=== PATIENT | female | born 1995 | race Two or more races ===

== ENCOUNTER 2017-12-02 23:45 | Emergency (ER) | payer SELFPAY ==
--- NOTE | 2017-12-03 00:35 | EDPHY ---
H & P Stated Complaint: left lower abd pain Time Seen by Provider: 12/03/17 00:23 HPI/ROS: Chief Complaint: Abdominal pain HPI: 22-year-old G0 woman presenting with left lower abdominal pelvic pain worsening for the last 3 days. Last menstrual period started 4 days ago. No nausea or vomiting. There are no aggravating or alleviating factors. She has not take any medicine for this. Pain is about a 4/10. Has had some urinary frequency. She has an implant non. No history of sexually transmitted infections in the past. No abnormal vaginal discharge. No fevers or chills. ROS: 10 systems were reviewed and were negative except those elements noted in the HPI. PMH: Denies Social History: No smoking, no alcohol, no recreational drug use Family History: non-contributory Physical Exam: Gen: Awake, Alert, No Distress HEENT: Nose: no rhinorrhea Eyes: PERRLA, EOMI Mouth: Moist mucosa Neck: Supple, no JVD Chest: nontender, lungs clear to auscultation Heart: S1, S2 normal, no murmur Abd: Soft, moderate left adnexal tenderness, no guarding Back: no CVA tenderness, no midline tenderness Ext: no edema, non-tender Skin: no rash Neuro: CN II-XII intact, Sensation grossly intact, Strength 5/5 in bilateral upper and lower extremities - Personal History LMP (Females 10-55): 1-7 Days Ago Current Tetanus Diphtheria and Acellular Pertussis (TDAP): Yes - Medical/Surgical History Hx Asthma: No Hx Chronic Respiratory Disease: No Hx Diabetes: No Hx Cardiac Disease: No Hx Renal Disease: No Hx Cirrhosis: No Hx Alcoholism: No Hx HIV/AIDS: No Hx Splenectomy or Spleen Trauma: No - Social History Smoking Status: Never smoked Constitutional: Initial Vital Signs Temperature (C) 37 C 12/02/17 23:52 Heart Rate 87 12/02/17 23:52 Respiratory Rate 20 12/02/17 23:52 Blood Pressure 121/70 H 12/02/17 23:52 O2 Sat (%) 98 12/02/17 23:52 O2 Delivery Mode Room Air Allergies/Adverse Reactions: Penicillins Allergy (Verified 12/02/17 23:52) Home Medications: Medication Instructions Recorded NK [No Known Home Meds] 12/02/17 Medical Decision Making - Diagnostics Imaging Results: Pelvic ultrasound shows a ruptured left follicular cyst per Dr. Crowley. Imaging: Discussed imaging studies w/ electrical tester Radiologist ED Course/Re-evaluation: Ultrasound consistent with a ruptured cyst. Patient is improved after ibuprofen. Will discharge with follow up with OBGYN. - Data Points Laboratory Results: 12/03/17 12/03/17 12/03/17 00:00 00:00 00:00 Urine Color PALE YELLOW Urine Appearance CLEAR Urine pH 6.0 (5.0-7.5) Ur Specific [place] 1.011 (1.002-1.030) Urine Protein NEGATIVE (NEGATIVE) Urine Ketones NEGATIVE (NEGATIVE) Urine Blood 1+ H (NEGATIVE) Urine Nitrate NEGATIVE (NEGATIVE) Urine Bilirubin NEGATIVE (NEGATIVE) Urine Urobilinogen NEGATIVE EU EU (0.2-1.0) Ur Leukocyte Esterase NEGATIVE (NEGATIVE) Urine RBC NONE SEEN /hpf /hpf (0-3) Urine WBC 1-3 /hpf /hpf (0-3) Ur Epithelial Cells TRACE /lpf /lpf (NONE-1+) Urine Bacteria TRACE /hpf H /hpf (NONE SEEN) Urine Mucus TRACE /lpf /lpf (NONE-1+) Urine Glucose NEGATIVE (NEGATIVE) Urine Test NEGATIVE C.trachomatis RNA (TMA) Pending N.gonorrhoeae RNA (TMA) Pending Departure - Departure Disposition: Home, Routine, Self-Care Clinical Impression: Ruptured ovarian cyst Condition: Good Instructions: Ruptured Ovarian Cyst (ED) Additional Instructions: Take ibuprofen, 600 mg 3 times a day for the pain. You may also alternate acetaminophen 1000 mg 3 times a day. Follow up with OBGYN for any concerns. Referrals: Angy Cuevas DO [Doctor of Osteopathy] - As per Instructions
[2017-12-03 01:38] VITALS: BP 123/70
[2017-12-04 10:42] LABS: GC AMPLIFICATION GENPROBE NEGATIVE (NEGATIVE)
== END 2017-12-03 01:37 | disposition home or self-care (01) ==
DX: N83.02 Follicular cyst of left ovary (principal); N83.01 Follicular cyst of right ovary